=== PATIENT | female | born 2000 | race Caucasian/White ===

== ENCOUNTER 2022-02-17 21:02 | Emergency (ER) | payer OTHER ==
--- NOTE | 2022-02-17 21:21 | ED Chest Pain ---
General Chief Complaint: Chest Wall Stated Complaint: CHEST PAIN,HIGH HR,SWOLLEN GLAND RT UNDERARM Source: patient Exam Limitations: no limitations History of Present Illness Date Seen by Provider: Feb 17, 2022 Time Seen by Provider: 21:04 Initial Comments 21-year-old female with no pertinent past medical history coming in due to centr al chest pain. Is been going on for almost 4 days, intermittent today, but was constant all weekend. Has never had pain like this before. The sharp pain in the center of her chest that nothing really seems to make better or worse. Denies any history of DVT or PE, no lower extremity swelling or pain, no recent long travel, no recent surgeries, does not take any hormones, no history of early cardiac in the family. She is otherwise denying any other acute complaints. LMP was 15 days ago. Allergies and Home Medications Allergies Coded Allergies: No Known Drug Allergies (Unverified , 02/17/22) Patient Home Medication List Home Medication List Reviewed: Yes Review of Systems Review of Systems Constitutional: No fever EENTM: No Blurred Vision Respiratory: Denies Cough, Denies Shortness of Air Cardiovascular: Chest Pain Gastrointestinal: No Symptoms Reported Genitourinary: No Symptoms Reported Musculoskeletal: no symptoms reported Skin: no symptoms reported Psychiatric/Neurological: No Symptoms Reported Endocrine: No Symptoms Reported Hematologic/Lymphatic: No Symptoms Reported All Other Systems Reviewed Negative Unless Noted: Yes Past Dzssiws-Jlltec-Xoxbwj Hx Patient Social History Tobacco Use?: No Use of E-Cig and/or Vaping dev: No Substance use?: No Alcohol Use?: Yes Alcohol type: Beer, Hard Liquor, Wine Alcohol Frequency: Several times a month Pt feels they are or have been: No Immunizations Up To Date Influenza Vaccine Up-to-Date: Yes; Up-to-Date Past Medical History Surgeries: Yes (wisdom teeth) Physical Exam Vital Signs Vital Signs - First Documented 02/17/22 21:08 Temp 36.6 Pulse 87 Resp 16 B/P (MAP) 121/91 (101) Pulse Ox 98 O2 Delivery Room Air Capillary Refill : Height, Weight, BMI Height: '" Weight: lbs. oz. kg; BMI Method: General Appearance: No Apparent Distress, WD/WN HEENT: PERRL/EOMI, Normal ENT Inspection, Pharynx Normal Neck: Full Range of Motion, Normal Inspection, Non Tender, Supple Respiratory: Chest Non Tender, Lungs Clear, No Accessory Muscle Use, No Respiratory Distress Cardiovascular: Regular Rate, Rhythm, No Edema, Normal Peripheral Pulses Gastrointestinal: Normal Bowel Sounds, Non Tender, Soft; No Distended, No Guarding Extremity: Normal Capillary Refill, Normal Inspection, Normal Range of Motion, Non Tender, No Calf Tenderness, No Pedal Edema Neurologic/Psychiatric: Alert, No Motor/Sensory Deficits, Normal Mood/Affect Skin: Normal Color, Warm/Dry Lymphatic: No Adenopathy Progress/Results/Core Measures Results/Orders Lab Results Laboratory Tests Test 02/17/22 21:17 Range/Units White Blood Count 9.0 4.3-11.0 10^3/uL Red Blood Count 4.20 3.80-5.11 10^6/uL Hemoglobin 12.8 11.5-16.0 g/dL Hematocrit 38 35-52 % Mean Corpuscular Volume 90 80-99 fL Mean Corpuscular Hemoglobin 31 25-34 pg Mean Corpuscular Hemoglobin Concent 34 32-36 g/dL Red Cell Distribution Width 12.4 10.0-14.5 % Platelet Count 341 130-400 10^3/uL Mean Platelet Volume 10.5 9.0-12.2 fL Immature Granulocyte % (Auto) 0 % Neutrophils (%) (Auto) 56 42-75 % Lymphocytes (%) (Auto) 37 12-44 % Monocytes (%) (Auto) 6 0-12 % Eosinophils (%) (Auto) 1 0-10 % Basophils (%) (Auto) 1 0-10 % Neutrophils # (Auto) 5.0 1.8-7.8 10^3/uL Lymphocytes # (Auto) 3.3 1.0-4.0 10^3/uL Monocytes # (Auto) 0.5 0.0-1.0 10^3/uL Eosinophils # (Auto) 0.1 0.0-0.3 10^3/uL Basophils # (Auto) 0.1 0.0-0.1 10^3/uL Immature Granulocyte # (Auto) 0.0 0.0-0.1 10^3/uL Sodium Level 137 135-145 MMOL/L Potassium Level 3.4 L 3.6-5.0 MMOL/L Chloride Level 105 98-107 MMOL/L Carbon Dioxide Level 23 21-32 MMOL/L Anion Gap 9 5-14 MMOL/L Blood Urea Nitrogen 15 7-18 MG/DL Creatinine 1.03 0.60-1.30 MG/DL Estimat Glomerular Filtration Rate 79 BUN/Creatinine Ratio 15 Glucose Level 94 70-105 MG/DL Calcium Level 9.0 8.5-10.1 MG/DL Corrected Calcium 9.0 8.5-10.1 MG/DL Magnesium Level 1.7 1.6-2.4 MG/DL Total Bilirubin 0.4 0.1-1.0 MG/DL Aspartate Amino Transf (AST/SGOT) 21 5-34 U/L Alanine Aminotransferase (ALT/SGPT) 20 0-55 U/L Alkaline Phosphatase 71 40-136 U/L Troponin I < 0.028 <0.028 NG/ML Total Protein 6.8 6.4-8.2 GM/DL Albumin 4.0 3.2-4.5 GM/DL Lipase 33 8-78 U/L My Orders Orders - MINA GAMBOA MD Ekg Tracing (02/17/22 21:11) Cbc With Automated Diff (02/17/22 21:19) Magnesium (02/17/22 21:19) Chest 1 View, Ap/Pa Only (02/17/22 21:19) Ekg Tracing (02/17/22 21:19) Comprehensive Metabolic Panel (02/17/22 21:19) O2 (02/17/22 21:19) Monitor-Rhythm Ecg Trace Only (02/17/22 21:19) Ed Iv/Invasive Line Start (02/17/22 21:19) Lipase (02/17/22 21:19) Troponin I Kimberly (02/17/22 21:19) Lidocaine 2% Viscous 15 Ml (Xylocaine Vi (02/17/22 21:45) Famotidine Tablet (Pepcid Tablet) (02/17/22 21:45) Antacid Suspension (Mylanta Suspension (02/17/22 21:45) Ketorolac Injection (Toradol Injection) (02/17/22 21:45) Medications Given in ED Current Medications Medications Dose Ordered Sig/Brenda Route Start Time Stop Time Status Last Admin Dose Admin Al Hydrox/Mg Hydrox/Simethicone 30 ml ONCE ONCE PO 02/17/22 21:45 02/17/22 21:46 DC 02/17/22 21:53 30 ML Ketorolac Tromethamine 15 mg ONCE ONCE IVP 02/17/22 21:45 02/17/22 21:46 DC 02/17/22 21:53 15 MG Lidocaine HCl 15 ml ONCE ONCE PO 02/17/22 21:45 02/17/22 21:46 DC 02/17/22 21:53 15 ML Vital Signs/I&O 02/17/22 21:08 Temp 36.6 Pulse 87 Resp 16 B/P (MAP) 121/91 (101) Pulse Ox 98 O2 Delivery Room Air Progress Progress Note : Progress Note 21-year-old female with above history coming in due to chest pain. ABCs were intact and vitals were stable on presentation. Physical exam reassuring with no focal abnormalities. EKG with no acute ischemic changes. Chest x-ray with no acute findings. The patient is low risk for PE per [place] criteria and is PERC negative. Constant pain since several days is not consistent with ACS and troponin is negative as well. Likely musculoskeletal in nature versus GI related. I believe she is stable for discharge with outpatient follow-up. She was sent home with strict return precautions. Initial ECG Impression Date: Feb 17, 2022 Initial ECG Impression Time: 21:20 Initial ECG Rate: 69 Initial ECG Rhythm: Normal Sinus Comment narrow QRS, borderline RAD, no significant ST changes or TWI Diagnostic Imaging Diagonstic Imaging: Xray (chest) Comments [facility], [place] NAME: NIKOLAY [facility]ELAN [facility] REC#: [id number] PT STATUS: REG ER : 2000 PHYSICIAN: MINA GAMBOA MD ADMIT DATE: 02/17/22/ER Draft Date of Exam:02/17/22 CHEST 1 VIEW, AP/PA ONLY INDICATION: Intermittent chest pain COMPARISON: No previous study is available for comparison at this time. FINDINGS: Heart size and pulmonary vasculature are within normal limits, and the lungs are clear, bilaterally. IMPRESSION: Unremarkable chest. Dictated on workstation # [id number] Dict: 02/17/222140 Trans: 02/17/222141 [facility] [id number] Interpreted by: LE FRANCO MD Electronically signed by: Departure Impression Primary Impression: Chest pain Qualified Codes: R07.82 - Intercostal pain Disposition: HOME, SELF-CARE Condition: Stable Departure-Patient Inst. Decision time for Depature: 22:05 Referrals: NO,LOCAL PHYSICIAN (PCP/Family) Primary Care Physician Patient Instructions: Chest Pain That Is Not Caused by the Heart (DC) Add. Discharge Instructions: It does not appear like you are having heart attack or have anything life-threat ening such as a blood clot. In these cases, it typically is musculoskeletal related or even GI tract related. Please follow-up with your regular doctor. If symptoms occur in the future, you can try taking [id number]-[id number] Maalox as well as ibuprofen to see if they improve. Work/School Note: School/Childcare Release, Date Seen in the Emergency De partment: Feb 17, 2022 Time Dismissed from Emergency Department: 21:57 Return to School: Feb 19, 2022 Restrictions: No Restrictions Work Release Form Date Seen in the Emergency Department: Feb 17, 2022 Return to Work: Feb 19, 2022 Restrictions: No Restrictions MINA GAMBOA MD Feb 17, 2022 21:21
[2022-02-17 21:25] LABS: BASOPHILS # (AUTO) 0.1 10^3/uL (0.0-0.1); BASOPHILS % (AUTO) 1 % (0-10); EOSINOPHILS # (AUTO) 0.1 10^3/uL (0.0-0.3); EOSINOPHILS % (AUTO) 1 % (0-10); HEMATOCRIT 38 % (35-52); HEMOGLOBIN 12.8 g/dL (11.5-16.0); LYMPHOCYTES # (AUTO) 3.3 10^3/uL (1.0-4.0); LYMPHOCYTES % (AUTO) 37 % (12-44); MEAN CORPUSCULAR HEMOGLOBIN 31 pg (25-34); MEAN CORPUSCULAR HGB CONC 34 g/dL (32-36); MEAN CORPUSCULAR VOLUME 90 fL (80-99); MEAN PLATELET VOLUME 10.5 fL (9.0-12.2); MONOCYTES # (AUTO) 0.5 10^3/uL (0.0-1.0); MONOCYTES % (AUTO) 6 % (0-12); NEUTROPHILS % (AUTO) 56 % (42-75); PLATELET COUNT 341 10^3/uL (130-400)
[2022-02-17 21:42] LABS: POTASSIUM 3.4 MMOL/L (3.6-5.0)
--- NOTE | 2022-02-17 21:42 | Diagnostic Imaging Report ---
INDICATION: Intermittent chest pain COMPARISON: No previous study is available for comparison at this time. FINDINGS: Heart size and pulmonary vasculature are within normal limits, and the lungs are clear, bilaterally. IMPRESSION: Unremarkable chest. Dictated by: Dictated on workstation # [id number]
[2022-02-17 21:44] LABS: TOTAL PROTEIN 6.8 GM/DL (6.4-8.2)
[2022-02-17] MEDS ORDERED: ANTACID SUSP 30 ML UDC (MYLANTA) PO ONE (21:45)
[2022-02-17] MEDS ORDERED: LIDOCAINE 2% VISCOUS 15 ML UDC PO ONE (21:45)
[2022-02-17] MEDS ORDERED: FAMOTIDINE 20 MG (PEPCID) TABLET PO STA (21:45)
[2022-02-17] MEDS ORDERED: KETOROLAC 30 MG/ML VIAL IVP ONE (21:45)
[2022-02-17 21:46] LABS: BILIRUBIN,TOTAL 0.4 MG/DL (0.1-1.0)
[2022-02-17 21:48] LABS: CREATININE SERUM 1.03 MG/DL (0.60-1.30)
[2022-02-17 21:51] LABS: MAGNESIUM 1.7 MG/DL (1.6-2.4)
[2022-02-17 22:05] VITALS: BP 125/90
== END 2022-02-17 22:05 | disposition home or self-care (01) ==
LOC: ER 21:06
DX: R07.9 Chest pain, unspecified (principal); Z28.310 Unvaccinated for COVID-19
CPT/HCPCS: 36415; 71045; 80053; 83690; 83735; 84484; 85025; 93005; 93041